=== PATIENT | male | born 1950 | race Caucasian/White ===

== ENCOUNTER 2020-01-14 11:12 | Day surgery (SDC) | payer MEDICARE, OTHER ==
[2020-01-12 10:28] VITALS: BMI 27.1
[~2020-01-14 11:12] MED LIST: LACTATED RINGERS 1,000 ML IV SCH; MOXIFLOXACIN HCL 0.5% DROPS 3 ML BTL OP ONE; ONDANSETRON 4 MG/2 ML VIAL IVP PRN; TETRACAINE 0.5% OPHTH (PF) DROPS 4 ML BTL OP ONE; TIMOLOL 0.5% OPHTH DROPS 5 ML BTL OP ONE; TOBRA-DEXAMET 0.3-0.1% OPHTH DROPS 2.5 ML BTL OPHTHALMIC NR; fentaNYL (PF) 50 MCG/ML 2 ML AMP IV PRN
[2020-01-14] MEDS: CYCLOPENTOLATE 1% OPHTH SOLN 2 ML BTL OP ONE ×3 (12:20→12:36)
[2020-01-14] MEDS: PHENYLEPHRINE 2.5% OPHTH DRP 2ML OP NR ×3 (12:26→12:39)
[2020-01-14] MEDS ORDERED: LIDOCAINE 1% (10MG/ML) FOR IV START INTRADERMA ONE (12:30)
[2020-01-14 12:40] VITALS: TEMP 98.3
[2020-01-14] MEDS ORDERED: fentaNYL (PF) 50 MCG/ML 2 ML AMP ONE (13:24)
[2020-01-14] MEDS ORDERED: MIDAZOLAM 2 MG/2 ML VIAL ONE (13:24)
[2020-01-14] MEDS ORDERED: BALANCED SALT IRRIG SOLN COMB2 15 ML IRRIG.SOLN INTRAOCULA ONE (13:41)
[2020-01-14] MEDS ORDERED: HYALURONATE SODIUM INTRAOCULAR 1 EACH SYRINGE (12MG/ML) INTRAOCULA ONE (13:41)
[2020-01-14] MEDS ORDERED: LIDOCAINE 1% (PF) 10MG/ML VIAL SQ ONE (13:42)
[2020-01-14] MEDS ORDERED: EPINEPHrine (PF) 0.3 ML in BALANCED SALT IRRIG SOLN COMB2 500 ML IRRIGATION ONE (13:43)
--- NOTE | 2020-01-14 14:10 | P.OP ---
Date of Procedure: 01/14/20 Preoperative Diagnosis: NS & CS Postoperative Diagnosis: same Procedure(s) Performed: PIOL, OS Implants: AO2UV 14.50 Anesthesia: MAC Surgeon: Cheng Velarde Pathology: none sent Condition: stable Disposition: same day Indications for Procedure: blurry vision Operative Findings: No complications
[2020-01-14 14:31] VITALS: BP 122/79; PULSE 69; RESP 16
--- NOTE | 2020-01-15 12:35 | OP ---
OPERATIVE REPORT DATE OF SURGERY: 01/14/2020 PROCEDURE: Phacoemulsification of cataract and intraocular lens implant with the left eye. 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 POSTOPERATIVE DIAGNOSIS: Nuclear sclerosis and cortical sclerosis. OPERATION: Phacoemulsification of cataract and Crystalens implant of the left eye. NARRATIVE: After obtaining the appropriate consent, the patient was brought to the operating room. There the patient was placed under cardiac monitoring, prepped and draped in the usual sterile manner. The patient was approached from the [facility] temporal side. The 5.5 mm Brayan ring inked in [place] grant was placed centrally on the cornea. At the 11 o'clock position, a 1.1 mm keratome was used to create a paracentesis port. Through this opening, 1% Xylocaine MPF 50/50 mix with balanced salt solution was injected into the anterior chamber. This was followed by stabilization of the anterior chamber with Amvisc viscoelastic. At the 9 o'clock position, a 2.75 mm julio cesar keratome was used to create a self-scaling corneal flap incision in a Langerman fashion. Through this opening, a cystotome was introduced to begin a continuous tear capsulorrhexis which was completed using the Utrata forceps. Care was taken to ensure that the capsulorrhexis was at least the size of the hossein on the anterior cornea. Hydrodissection and hydrodelineation of the lens was accomplished with balanced salt solution. Phacoemulsification of the lens utilizing phaco chop was accomplished in 14.3 seconds at 13% power. Addition Xylocaine MPF was instilled into the anterior chamber. This was followed by removal of the remaining cortex under irrigation and aspiration along with careful polishing of the posterior capsule in a capsule vacuum mode. Additional Amvisc viscoelastic was then used to stabilize the capsular bag, and the Model AO2UV 14.5 diopters Crystalens intraocular lens was injected into the capsular bag without difficulty. The lens was rotated 270 degrees so that the haptics resided at the 6 and 12 o'clock positions, and all remaining viscoelastic was then removed from within the capsular bag and around the anterior chamber. The eye was brought to normal intraocular pressure through the paracentesis port along with slight hydration of the incision sites. Watertight integrity was confirmed using a fluorescein strip. The patient then received 2 drops of 0.5% timolol followed by 2 drops of Vigamox and 2 drops of 1% atropine. The patient was then lightly patched and shielded in the usual manner. There was no complications from the procedure. The patient tolerated the procedure well and was returned to outpatient recovery in good condition. OSITO / SABI: [id number] /
== END 2020-01-14 14:57 | disposition home or self-care (01) ==
LOC: OR 11:12
PROVIDERS: ATTEND Ophthalmology
DX: H25.812 Combined forms of age-related cataract, left eye (principal); H52.13 Myopia, bilateral; H16.423 Pannus (corneal), bilateral; Z98.41 Cataract extraction status, right eye; Z96.1 Presence of intraocular lens; Z98.890 Other specified postprocedural states; Z79.899 Other long term (current) drug therapy; Z83.518 Family history of other specified eye disorder; Z83.511 Family history of glaucoma; Z80.42 Family history of malignant neoplasm of prostate; Z80.52 Family history of malignant neoplasm of bladder; Z80.0 Family history of malignant neoplasm of digestive organs; Z82.49 Family history of ischemic heart disease and other diseases of the circulatory system; Z97.3 Presence of spectacles and contact lenses; K08.89 Other specified disorders of teeth and supporting structures
CPT/HCPCS: 66984; V2632; V2788; J2250; J0171; J3010; J2001